=== PATIENT | female | born 1975 | race Asian ===

== ENCOUNTER 2018-01-23 12:09 | Inpatient (IN) | payer SELFPAY ==
[~2018-01-23] VITALS: Ht 167.6 cm; Wt 68.0 kg
[2018-01-23] MEDS ORDERED: AMPICILLIN 2,000 MG in NACL 0.9% 100 ML IV ONE (12:30)
[2018-01-23] MEDS: LACTATED RINGERS 1,000 ML IV SCH ×4 (13:01→16:38)
[2018-01-23] MEDS ORDERED: AMPICILLIN 2,000 MG VIAL ONE (13:13)
[2018-01-23 13:30] LABS: BASOPHILS % (AUTO) 0.4 % (0.0-2.0); EOSINOPHILS % (AUTO) 0.4 % (0.0-4.0); HEMATOCRIT 36.5 % (36-48); HEMOGLOBIN 12.2 g/dL (12.0-16.0); LYMPHOCYTES # (AUTO) 1.7 K/uL (2.5-16.5); LYMPHOCYTES % (AUTO) 16.6 % (20.5-51.1); MEAN CORPUSCULAR HEMOGLOBIN 33 pg (27-31); MEAN CORPUSCULAR HGB CONC 33 g/dL (33-37); MONOCYTES # (AUTO) 0.6 K/uL (0.8-1.0); MONOCYTES % (AUTO) 6.1 % (1.7-9.3); NEUTROPHILS % (AUTO) 76.5 % (42.2-75.2); PLATELET COUNT (AUTO) 177 K/uL (140-450); RED BLOOD CELL COUNT(AUTO) 3.66 MIL/uL (4.20-5.40); RED CELL DISTRIBUTION WIDTH 14.4 % (11.6-13.7); WHITE BLOOD COUNT (AUTO) 10.5 K/uL (4.8-10.8)
[2018-01-23 13:31] LABS: APPEARANCE,URINE HAZY (CLEAR); BILIRUBIN,URINE NEGATIVE (NEGATIVE); BLOOD, URINE TRACE-I (NEGATIVE); COLOR,URINE YELLOW (YELLOW); LEUKOCYTE ESTERASE ,URINE NEGATIVE (NEGATIVE); NITRITE, URINE NEGATIVE (NEGATIVE); UGLUCOSE NEGATIVE (NEGATIVE)
[2018-01-23 13:44] LABS: RBC,URINE 3-10 (FEW) /HPF (0-5); WBC,URINE 0-5 (RARE) /HPF (0-5)
[2018-01-23 13:52] LABS: ALBUMIN 2.6 g/dL (3.4-5.0); ANION GAP 12.2 (8-16); CREATININE 0.4 mg/dL (0.6-1.3); POTASSIUM 4.2 mmol/L (3.5-5.1); TOTAL BILIRUBIN 0.2 mg/dL (0.0-1.0)
[2018-01-23] MEDS ORDERED: PREN-546 PO (15:31)
[2018-01-23] MEDS ORDERED: fentaNYL 0.05 MG/ML VIAL ONE (15:36)
[2018-01-23] MEDS ORDERED: MORPHINE PRES FREE 2 MG/2 ML 2 mL UD SYRINGE ONE (15:37)
[2018-01-23] MEDS ORDERED: BUPIVACAINE/DEXT 0.75% SPINAL 2 ML AMP INJ ONE (15:40)
[2018-01-23] MEDS ORDERED: OXYTOCIN 10 UNITS/ML VIAL ONE ×2 (15:43→15:57)
[2018-01-23] MEDS ORDERED: METHYLERGONOVINE 0.2 MG/ML AMP ONE (15:58)
[2018-01-23] MEDS ORDERED: TRIAMCINOLONE 40 MG/ML 5ML VIAL ONE (15:58)
[2018-01-23] MEDS ORDERED: ONDANSETRON 4 MG/2 ML VIAL IVP PRN ×2 (16:10→20:00)
[2018-01-23] MEDS ORDERED: NALOXONE 0.4 MG/ML VIAL IVP PRN ×3 (16:10)
[2018-01-23] MEDS ORDERED: NALBUPHINE 10 MG/ML AMP IVP PRN (16:10)
[2018-01-23] MEDS ORDERED: diphenhydrAMINE 50 MG/ML VIAL IVP PRN (16:10)
[2018-01-23] MEDS ORDERED: METHYLERGONOVINE 0.2 MG/ML AMP IM ONE (16:35)
[2018-01-23] MEDS ORDERED: HYDROcodone/APAP 5/325 MG 1 TAB TAB PO PRN (16:35)
[2018-01-23] MEDS ORDERED: TEMAZEPAM 15 MG CAP PO PRN (16:35)
[2018-01-23] MEDS ORDERED: oxyCODONE/APAP 5/325 MG 1 TAB TAB PO PRN (16:35)
[2018-01-23] MEDS ORDERED: SIMETHICONE 80 MG TAB.CHEW PO PRN (16:35)
[2018-01-23] MEDS ORDERED: ONDANSETRON 4 MG/2 ML VIAL ONE (16:48)
[2018-01-23] MEDS ORDERED: diphenhydrAMINE 50 MG/ML VIAL ONE (16:48)
[2018-01-23] MEDS ORDERED: OXYTOCIN 20 UNITS/LR PREMIX 1,000 ML IV ONE (16:48)
[2018-01-23] MEDS ORDERED: OXYTOCIN 20 UNITS in LACTATED RINGERS 1,000 ML IV SCH (17:00)
[2018-01-23] MEDS: DOCUSATE SOD/SENNA 50/8.6 MG 1 TAB PO SCH (20:53)
[2018-01-23] MEDS ORDERED: LACTATED RINGERS 1,000 ML IV SCH (21:00)
[2018-01-23] MEDS: KETOROLAC 60 MG/2 ML VIAL IM PRN (21:14)
[2018-01-23] MEDS ORDERED: LACTATED RINGERS 1,000 ML IV ONE (21:15)
[2018-01-24] MEDS ORDERED: OXYTOCIN 10 UNITS/ML VIAL ONE (06:54)
[2018-01-24 08:07] LABS: RAPID PLASMA REAGIN NON-REACTIVE (Non Reactiv)
[2018-01-24 08:36] LABS: BASOPHILS % (AUTO) 0.2 % (0.0-2.0); EOSINOPHILS % (AUTO) 0.2 % (0.0-4.0); HEMATOCRIT 35.9 % (36-48); HEMOGLOBIN 11.8 g/dL (12.0-16.0); LYMPHOCYTES # (AUTO) 1.5 K/uL (2.5-16.5); LYMPHOCYTES % (AUTO) 11.7 % (20.5-51.1); MEAN CORPUSCULAR HEMOGLOBIN 33 pg (27-31); MEAN CORPUSCULAR HGB CONC 33 g/dL (33-37); MEAN CORPUSCULAR VOLUME 101.2 fL (80-94); MONOCYTES # (AUTO) 0.6 K/uL (0.8-1.0); MONOCYTES % (AUTO) 4.8 % (1.7-9.3); NEUTROPHILS # (AUTO) 10.8 K/uL (1.8-7.7); NEUTROPHILS % (AUTO) 83.1 % (42.2-75.2); PLATELET COUNT (AUTO) 165 K/uL (140-450); RED BLOOD CELL COUNT(AUTO) 3.54 MIL/uL (4.20-5.40); RED CELL DISTRIBUTION WIDTH 14.5 % (11.6-13.7)
[2018-01-24] MEDS: KETOROLAC 60 MG/2 ML VIAL IM PRN (08:59)
--- NOTE | 2018-01-24 09:45 | NUR ---
PATIENT HAS BEEN SCREENED AND CATEGORIZED LOW NUTRITION RISK. PATIENT WILL BE SEEN WITHIN 7 DAYS OF ADMISSION. 01/30/[address]
[2018-01-24] MEDS ORDERED: IBUPROFEN 800 MG TAB PO PRN (16:10)
[2018-01-24] MEDS: DOCUSATE SOD/SENNA 50/8.6 MG 1 TAB PO SCH (21:13)
[2018-01-25] MEDS ORDERED: BENZOCAINE/MENTHOL 20%-0.5% 60 GM CAN TP PRN (06:55)
[2018-01-25] MEDS ORDERED: MEASLES, MUMPS, AND RUBELLA 1 VIAL SQVAC PRN (06:55)
[2018-01-25] MEDS ORDERED: OXYTOCIN 10 UNITS/ML VIAL IM PRN (06:55)
[2018-01-25] MEDS ORDERED: oxyCODONE/APAP 5/325 MG 1 TAB TAB PO PRN (06:55)
[2018-01-25] MEDS ORDERED: METHYLERGONOVINE 0.2 MG/ML AMP IM PRN (06:55)
[2018-01-25] MEDS ORDERED: TEMAZEPAM 15 MG CAP PO PRN (06:55)
[2018-01-25] MEDS ORDERED: HYDROcodone/APAP 5/325 MG 1 TAB TAB PO PRN (06:55)
[2018-01-25] MEDS: IBUPROFEN 800 MG TAB PO PRN ×3 (08:37→21:08)
[2018-01-25] MEDS: DOCUSATE SOD/SENNA 50/8.6 MG 1 TAB PO SCH (20:55)
[2018-01-25] MEDS ORDERED: DOCUSATE SOD/SENNA 50/8.6 MG 1 TAB PO SCH (21:00)
[2018-01-26 08:26] LABS: HEMATOCRIT 35.7 % (36-48)
== END 2018-01-26 13:44 | disposition home or self-care (01) | DRG 766 ==
LOC: MLD 12:09 → MFCC 17:36
PROVIDERS: ADMIT Obstetrics & Gynecology; ATTEND Obstetrics & Gynecology
PROC: 10D00Z1 Extraction of Products of Conception, Low, Open Approach (ICD-10-PCS; principal; 2018-01-24)
PROC: 3E0234Z Introduction of Serum, Toxoid and Vaccine into Muscle, Percutaneous Approach (ICD-10-PCS; 2018-01-25)
DX: O34.211 Maternal care for low transverse scar from previous cesarean delivery (principal); Z37.0 Single live birth; Z3A.39 39 weeks gestation of pregnancy; O99.824 Streptococcus B carrier state complicating childbirth; Z23 Encounter for immunization
CPT/HCPCS: 36415; 51702; 80053; 81001; 85018; 85025; 86592; 86886; 86900; 86901; 90707; 90715; J0290; J0690; J1200; J1885; J2210; J2270; J2405; J2590; J3010; J3301; J3490; J7060; J7120